=== PATIENT | male | born 1975 | race Caucasian/White ===

== ENCOUNTER 2019-05-24 22:23 | Emergency (ER) | payer OTHER ==
[2019-05-24] MEDS ORDERED: Bupivacaine PF 0.5% 30 ML VIAL ONE (22:45)
[2019-05-24] MEDS ORDERED: Adacel (T-DAP) 0.5 ML SYRINGE ONE (22:57)
== END 2019-05-24 23:09 | disposition home or self-care (01) ==
LOC: MADERS 22:23
DX: S61.012A Laceration without foreign body of left thumb without damage to nail, initial encounter (principal); G47.00 Insomnia, unspecified; F32.9 Major depressive disorder, single episode, unspecified; Z23 Encounter for immunization; Z79.899 Other long term (current) drug therapy; W26.0XXA Contact with knife, initial encounter
CPT/HCPCS: 90471; 90715; S0020